=== PATIENT | female | born 1950 | race Two or more races ===

== ENCOUNTER 2019-05-29 07:51 | Day surgery (SDC) | payer OTHER ==
[~2019-05-29 07:51] MED LIST: ATIVAN2 M1 PO; LEVOXYL75 MCG PO; NORVASC2.5 M1 PO; VITAMIN D3400 UNI1 PO; VYTORIN 10-401 EACH PO
[2019-05-29] MEDS ORDERED: MORGIDOX100 MG PO (13:01)
[2019-05-29] MEDS ORDERED: Tylenol #3 PO (13:01)
== END 2019-05-29 19:30 | disposition home or self-care (01) ==
LOC: CIR.AMB 07:51
DX: D25.0 Submucous leiomyoma of uterus (principal); N84.0 Polyp of corpus uteri

== ENCOUNTER 2022-10-30 08:47 | Inpatient (IN) | payer OTHER ==
[~2022-10-30] VITALS: Ht 157.5 cm; Wt 66.2 kg
[~2022-10-30 08:47] MED LIST changes: +MORGIDOX100 MG PO; +Tylenol #3 PO
[2022-10-30] MEDS ORDERED: LEVOXYL75 MCG PO (11:12)
[2022-10-30] MEDS ORDERED: VYTORIN 10-401 EACH PO (11:12)
[2022-11-03] MEDS ORDERED: Tylenol #3 PO (09:15)
[2022-11-03] MEDS ORDERED: NAPR500T14 PO (09:15)
== END 2022-11-03 12:17 | disposition home or self-care (01) | DRG 743 ==
LOC: O/R 11-02 05:28 → OB/GYN 11-02 05:28 → SURH 11-02 09:15 → O/R 11-02 11:14 → OB/GYN 11-02 11:52 → SURH 11-02 16:30 → OB/GYN 11-03 12:17
PROVIDERS: ADMIT Obstetrics & Gynecology; ATTEND Obstetrics & Gynecology
PROC: 0UT7FZZ Resection of Bilateral Fallopian Tubes, Via Natural or Artificial Opening With Percutaneous Endoscopic Assistance (ICD-10-PCS; 2022-11-02)
PROC: 0UT2FZZ Resection of Bilateral Ovaries, Via Natural or Artificial Opening With Percutaneous Endoscopic Assistance (ICD-10-PCS; 2022-11-02)
PROC: 0JQC0ZZ Repair Pelvic Region Subcutaneous Tissue and Fascia, Open Approach (ICD-10-PCS; 2022-11-02)
PROC: 0USG0ZZ Reposition Vagina, Open Approach (ICD-10-PCS; 2022-11-02)
PROC: 0TJB8ZZ Inspection of Bladder, Via Natural or Artificial Opening Endoscopic (ICD-10-PCS; 2022-11-02)
PROC: 0UT9FZZ Resection of Uterus, Via Natural or Artificial Opening With Percutaneous Endoscopic Assistance (ICD-10-PCS; principal; 2022-11-02 16:30)
DX: D25.1 Intramural leiomyoma of uterus (principal); D25.2 Subserosal leiomyoma of uterus; N81.11 Cystocele, midline; N84.0 Polyp of corpus uteri; Z20.822 Contact with and (suspected) exposure to COVID-19; G89.18 Other acute postprocedural pain